=== PATIENT | male | born 1960 | race Caucasian/White ===

== ENCOUNTER 2017-09-14 13:42 | Emergency (ER) | payer OTHER ==
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
[2017-09-14 14:09] VITALS: RESP 18; TEMP 97.9
--- NOTE | 2017-09-14 14:10 | CPEKG ---
Heart Rate: 87 RR Interval: 690 P-R Interval: 132 QRSD Interval: 88 QT Interval: 380 QTC Interval: 457 P [place]: 40 QRS [place]: 56 T Wave [place]: 19 EKG Severity - NORMAL ECG - EKG Impression: SINUS RHYTHM Electronically Signed By: Jeremiah Cat 17-Sep-2017 09:38:38
[2017-09-14 14:33] LABS: PLATELET COUNT 249 10^3/uL (150-400)
[2017-09-14 15:22] VITALS: BP 132/73; PULSE 84; O2SAT 95
== END 2017-09-14 15:20 | disposition home or self-care (01) ==
LOC: CED 13:42
DX: R07.9 Chest pain, unspecified (principal); F17.210 Nicotine dependence, cigarettes, uncomplicated
CPT/HCPCS: 80048-PO; 84484-PO; 85025-PO

== ENCOUNTER → 2018-05-15 | Outpatient (CLI) | payer OTHER | LOC: BHFA 09:30 | PROVIDERS: ATTEND Internal Medicine Interventional Cardiology | DX: I25.10 Atherosclerotic heart disease of native coronary artery without angina pectoris (principal) | CPT/HCPCS: 78452; 93017; A9500; J2785 ==

== ENCOUNTER 2018-05-24 12:40 | Day surgery (SDC) | payer OTHER ==
[2018-05-24] MEDS ORDERED: DIAZEPAM 5 MG TAB PO ONE (12:43)
[2018-05-24] MEDS ORDERED: diphenhydrAMINE 25 MG CAP PO ONE (12:43)
[2018-05-24] MEDS ORDERED: FAMOTIDINE 20 MG TAB PO ONE (12:43)
[2018-05-24] MEDS ORDERED: NS 1,000 ML IV ONE (12:43)
[2018-05-24] MEDS ORDERED: ASPIRIN EC 325 MG TAB PO ONE (12:43)
[2018-05-24 13:33] LABS: PLATELET COUNT 237 10^3/uL (150-400)
[2018-05-24 13:45] LABS: INR 0.9 (0.83-1.16); PROTIME(PATIENT) 12.4 SEC (12.0-15.0)
[2018-05-24] MEDS ORDERED: LIDOCAINE 1% 300 MG/30 ML SDV ONE (13:55)
[2018-05-24] MEDS ORDERED: HEPARIN 10,000 UNIT/10 ML MDV (1,000 UNIT/ML) ONE (13:56)
[2018-05-24] MEDS ORDERED: fentaNYL 100 MCG/2 ML INJ ONE (13:56)
[2018-05-24] MEDS ORDERED: MIDAZOLAM 2 MG/2 ML VIAL ONE (13:56)
[2018-05-24] MEDS ORDERED: VERAPAMIL 5 MG/2 ML VIAL ONE (13:56)
[2018-05-24] MEDS ORDERED: IOPAMIDOL (ISOVUE-370) 150 ML BTL IV ONE (13:56)
[2018-05-24] MEDS ORDERED: NITROGLYCERIN 0.4 MG BTL SL PRN (15:19)
[2018-05-24] MEDS ORDERED: ONDANSETRON 4 MG/2 ML VIAL IVP PRN (15:19)
[2018-05-24] MEDS ORDERED: OXYCODONE/APAP 5/325 TAB PO PRN (15:19)
[2018-05-24] MEDS ORDERED: HYDROCODONE/APAP 5/325 TAB PO PRN (15:19)
[2018-05-24] MEDS ORDERED: ATROPINE SULFATE 1 MG/10 ML SYR IVP PRN (15:19)
--- NOTE | 2018-05-24 16:09 | CPEKG ---
Test Reason : OPEN Blood Pressure : / mmHG Vent. Rate : 097 BPM Atrial Rate : 097 BPM P-R Int : 133 ms QRS Dur : 083 ms QT Int : 345 ms P-R-T Axes : 047 070 047 degrees QTc Int : 439 ms Sinus rhythm Confirmed by Rosalina Harman ([id number]) on 05/24/2018 4:08:52 PM Referred By: Confirmed By:Rosalina Harman
--- NOTE | 2018-05-24 17:44 | CPIP ---
DATE OF PROCEDURE: 05/24/2018 PROCEDURE PERFORMED: 1. Selective coronary angiography. 2. Left heart catheterization. 3. Left ventriculogram. 4. Angio-Seal arteriotomy repair, right femoral artery approach. COMPLICATIONS: None. INDICATION FOR THE PROCEDURE: CCS class 4 symptoms of angina occurring at rest, with an intermediate risk stress test, nuclear stress test suggestive of possible prior inferior infarction in a patient who needs to have not only a toe operation but an extensive back operation in the near future. The p atient is unable to exercise routinely because of toe and back issues and chronic back pain. PROCEDURE IN DETAIL: After informed consent was obtained and n.p.o. status was confirmed, the region of the right groin was cleaned, prepped, and draped in sterile fashion. Approximately 10 mL of 1% l idocaine was utilized for local anesthesia. A 6-Sami sheath was placed using a modified Seldinger technique and a micropuncture set. The patient then underwent the originally described procedure wit h the use of JL4 and JR4 coronary catheters as well as a 6-Sami pigtail catheter. Standard over-th e-wire exchange technique was utilized for all catheter exchanges. The left main coronary lumen was approximately 4 mm in size. The left main trifurcated into an LAD, small ramus and circumflex system. The ramus vessel was tiny and approximately 0.5 mm in size and di d not have obvious flow-limiting obstruction, but was not a target for intervention. The circumflex vessel was approximately 2.75 mm in size, giving rise to 2 important obtuse marginal branches and had evidence of AIDA-3 flow. The LAD was 2.75 in size proximally, giving rise to an early diagonal bran ch, which was approximately 2 mm in size. The LAD after the diagonal takeoff coursed the anterior ap ex without flow-limiting obstruction, was a relatively small vessel and less than 2 mm in size throug hout its course. The right coronary artery was dominant, giving rise to the posterior descending as well as 2 small po sterolateral ventricular branches. No flow-limiting obstruction was identified. There was AIDA-3 fl ow to the distal vessel. The patient underwent left heart catheterization, demonstrating normal left ventricular end-diastolic pressure measured at 10 mmHg. The patient underwent left ventriculogram in the BUENROSTRO projection, demo nstrating preserved left ventricular systolic function. Ejection fraction was measured at 55% with n o resting segmental wall motion abnormalities and specifically normal contractility of the inferior w all without evidence of mitral regurgitation. There was also no evidence of aortic stenosis upon pul lback across the aortic valve. The visualized portion of the thoracic aorta was normal caliber and h ad 3 sinuses of Valsalva most consistent with a trileaflet aortic valve. SUMMARY OF FINDINGS: 1. Normal left ventricular chamber size with preserved left ventricular systolic function. Ejection fraction 55%. 2. No resting segmental wall motion abnormalities are identified. 3. Calcification of the coronaries consistent with atherosclerosis on cinefluoroscopy, but no eviden ce of flow-limiting obstruction, dissection, or thrombus is identified. 4. The patient appears to be a good candidate for medical therapy per reduce the risk of plaque prog ression or inflammation with the use of a statin-based regimen to achieve a non-HDL cholesterol, that is the total cholesterol minus the HDL to be less than 100 mg/dL. Patient tolerated the procedure without immediate complication and would return to post cath recovery unit in good and stable condition and should be able to be discharged later today as long as no thong y complications occur. The patient will not need further cardiac testing prior to proceeding with planned orthopedic operati ons. It appears that his risk of sudden incapacitation from cardiovascular illness is quite low. It does appear that the nuclear stress test result was a spurious value and was a false-positive nuclea r stress test on the basis of this study. Copy requested to: [facility] /[id number]/MODL
== END 2018-05-24 18:49 | disposition home or self-care (01) ==
LOC: FCATH 12:40
PROVIDERS: ATTEND Internal Medicine Cardiovascular Disease
PROC: B2111ZZ Fluoroscopy of Multiple Coronary Arteries using Low Osmolar Contrast (ICD-10-PCS; principal; 2018-05-24)
PROC: B2151ZZ Fluoroscopy of Left Heart using Low Osmolar Contrast (ICD-10-PCS; principal; 2018-05-24)
PROC: 4A023N7 Measurement of Cardiac Sampling and Pressure, Left Heart, Percutaneous Approach (ICD-10-PCS; principal; 2018-05-24)
DX: I25.119 Atherosclerotic heart disease of native coronary artery with unspecified angina pectoris (principal); G89.29 Other chronic pain; Z98.1 Arthrodesis status
CPT/HCPCS: C1760; J1200; J1644; J2250; J3010; Q9967

== ENCOUNTER 2018-05-25 16:23 | Inpatient (IN) | payer OTHER ==
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
[2018-05-25] MEDS ORDERED: HYDROmorphONE/DILAUDID 2 MG/ML INJ IVP ONE (18:00)
[2018-05-25 19:19] LABS: INR 0.91 (0.83-1.16); PROTIME(PATIENT) 12.5 SEC (12.0-15.0)
--- NOTE | 2018-05-25 21:19 | SOAPPROG ---
[facility] Progress Note Assessment/Plan: 1. Pseudo aneurysm R NURSE PRACTITIONER PHYSICIAN ASSISTANT - Pt is s/p angiogram on 05/24/18. Did well following the procedure until this pm when he noted sharp inguinal pain followed by swelling. He presented to the ER and was diagnosed with a pseudo aneurysm (.3 x .3 x .5 cm). He was not felt to be a thrombin injection candidate given size and was managed with compression. Pt also noted to have a DVT of the R CFV. On exam Pt has a 2 x 4 cm hematoma with mild echymosis, 2+ DP, 1+ PT, normal color, and now edema. Suspect re-bleed and failure of pseudoaneurysm to heal is biggest threat at this time. Plan is to re-image in am. If pseudoaneurysm has healed and DVT remain would start anticoagulation. Subjective: + chronic back pain (not different) + pain to palpation in R inguinal access site Objective: Vital Signs Temp Pulse Resp BP Pulse Ox 36.6 C 89 18 142/93 H 93 05/25/18 20:20 05/25/18 20:20 05/25/18 20:20 05/25/18 20:20 05/25/18 20:20 PT 12.5 SEC (12.0-15.0) 05/25/18 16:40 INR 0.91 (0.83-1.16) 05/25/18 16:40 Physical Exam - Physical Exam General Appearance: alert, mild distress Skin: normal color Extremities: other (+ hematoma, + echymosis, 2+ DP, 1+ PT.), No pedal edema Neuro/Psych: alert, oriented x 3 ICD10 Worksheet Patient Problems: Problems Problem Status Onset CAD (coronary artery disease) Acute CAD (coronary artery disease) Acute
[2018-05-25] MEDS ORDERED: ONDANSETRON DISINTEGRATING 4 MG TAB PO PRN (22:23)
[2018-05-25] MEDS ORDERED: ONDANSETRON 4 MG/2 ML VIAL IVP PRN (22:23)
[2018-05-25] MEDS ORDERED: LORazepam 0.5 MG TAB PO PRN (22:23)
[2018-05-25] MEDS ORDERED: ACETAMINOPHEN 325 MG TAB PO PRN (22:23)
[2018-05-25] MEDS ORDERED: NS 1,000 ML IV SCH (22:30)
[2018-05-25] MEDS: OXYCODONE/APAP 5/325 TAB PO PRN (22:57)
--- NOTE | 2018-05-25 23:09 | PDGENHP ---
History and Physical - Chief Complaint right groing pain and swelling s/p cath - History of Present Illness Source - Patient provides history and appears reliable. EMR was reviewed and case discussed with accepting hospitalist. HPI - Pleasant 57 yo M with pmx significant for HLD, nonocclusive CAD, chronic back pain related to degenerative disc disease who initially presented to the cardiology office for preoperative evaluation on 05/22/2018. Given patient's abnormal echo findings it was recommended that he undergo cardiac catheterization preoperatively for his back surgery. On 05/24/2018 patient underwent an elective catheterization in the right groin that was non revealing for any occlusive disease. Patient appeared to be doing well postoperatively in recovery. 24 hr after did discharge in his cath at home patient reports he was still doing well and was taking it easy as per his discharge instructions. He subsequently went into the shower and remove his bandage. He had an immediate sharp stabbing pain that lasted home for approximately 20 min without improvement. He also noticed when he looked down that he had developed a large swelling area. [facility] where patient had compression applied with the weight bag. Pain has persisted without significant change or improvement. The swelling area has gone down. Patient did undergo a an ultrasound which was concerning for a thrombus and pseudoaneurysm. Patient transferred to [facility] for further evaluation by Cardiology. Dr. Palmer saw the patient on arrival. Plans to monitor overnight while patient is on bed rest and repeat imaging studies in the morning. At this time patient not and anticoagulate hsu candidate. Pseudoaneurysm was noted to be of insufficient size for IR intervention. History Information - Allergies/Home Medication List Allergies/Adverse Reactions: No Known Allergies Allergy (Verified 11/06/13 18:04) Home Medications: Cyclobenzaprine [Flexeril 10 MG (*)] 10 mg PO TID 05/23/18 [Last Taken 05/25/18 08:30] Diclofenac Sodium [Voltaren 75 MG (*)] 75 mg PO BID 05/23/18 [Last Taken 2 Days Ago ~05/23/18] Finasteride [Proscar 5 MG (*)] 2.5 mg PO DAILY 05/23/18 [Last Taken 05/23/18] Herbals/Supplements -Info Only 1 ea PO DAILY 05/23/18 [Last Taken 2 Days Ago ~] Multivitamins [Multivitamin (*)] 1 each PO DAILY 05/23/18 [Last Taken 05/23/18] Pravastatin Sodium 40 mg PO HS 05/23/18 [Last Taken 05/23/18] morphINE SR [Ms Contin/Oramorph 15 mg (*)] 15 mg PO TID 05/23/18 [Last Taken 01/05 08:30] oxyCODONE IR [Oxycodone Ir (*)] 10 mg PO TID 05/23/18 [Last Taken 05/25/18 08:30 ] Aspirin EC [Aspirin EC 325 mg (*)] 325 mg PO DAILY 05/24/18 [Last Taken 08:30] I have personally reviewed and updated: family history, medical history, social history, surgical history - Past Medical History Additional medical history: Previous listed history of CAD, chronic back pain related to osteoarthritis and degenerative disc disease, ED, anxiety, history of tremor - Surgical History Additional surgical history: Arthroscopic surgery left shoulder, cervical spine fusion, lumbar spine fusion - Family History Additional family history: CAD, HTN - Social History Smoking Status: Current every day smoker Tobacco Use: Cigar Alcohol Use: Other (Patient drinks 1-2 beers per day.) Drug Use: None Additional social history: Patient lives with his partner Karly. Cor status- full. Review of Systems Review of Systems: ROS: 10pt was reviewed & negative except for what was stated in HPI & below Constitutional: Reports: no symptoms Cardiac: Reports: no symptoms. Denies: chest pain, edema, lightheadedness, palpitations, syncope Respiratory: Reports: no symptoms. Denies: cough, shortness of breath Gastrointestinal: Reports: no symptoms Genitourinary: Reports: no symptoms Physical Exam Physical Exam: Selected Entries 05/25/18 16:25 Blood Pressure Automatic Method Heart Rate 112 H Respiratory 16 Rate O2 Sat (%) 93 Blood Pressure 149/106 H Mean Arterial 120 H Pressure (MAP) O2 Delivery Room Air Mode Temperature Oral Source Temp Pulse Resp BP Pulse Ox 36.6 C 88 18 125/74 H 93 05/25/18 21:57 05/25/18 21:57 05/25/18 21:57 05/25/18 21:57 05/25/18 21:57 Constitutional: appears nourished, uncomfortable, other (Patient mild distress complaining of right groin pain.) Eyes: PERRL (Slightly decreased reactivity light bilaterally but symmetric.), anicteric sclera, EOMI, No scleral injection Ears, Nose, Mouth, Throat: moist mucous membranes, other (No nasal discharge), No poor dentition Cardiovascular: regular rate and rhythym, no murmur, rub, or gallop, pulses symmetric bilaterally, No systolic murmur, No edema Peripheral Pulses: 2+: dorsalis-pedis (R), dorsalis-pedis (L) Respiratory: no respiratory distress, no rales or rhonchi, clear to auscultation , No reduced air movement, No expiratory wheeze, No inspiratory crackles, No respiratory distress Gastrointestinal: normoactive bowel sounds, soft, non-tender abdomen, no palpable masses, No distension Genitourinary: no bladder tenderness, other (Right groin cath site in with underlying hematoma bruising. Some mild tenderness to palpation. Patient is keeping ice on that area. He does lay very still. There is no evidence of active bleeding on the surface.) Skin: warm, normal color, no fluctuance, other (Right groin swelling as noted above.), No abrasion, No rash Musculoskeletal: full muscle strength (Overall strength intact but limited secondary to patient lying quietly in bed.), No generalized weakness Neurologic: AAOx3, sensation intact bilaterally, other (Grossly nonfocal exam.) , No facial droop Psychiatric: interacting appropriately, not encephalopathic, thought process linear, anxious, No flat affect, No poor insight, No poor judgement, No poor memory Lab Data & Imaging Review PT 12.5 SEC (12.0-15.0) 05/25/18 16:40 INR 0.91 (0.83-1.16) 05/25/18 16:40 APTT 26.2 SEC (23.0-38.0) 05/25/18 16:40 POC Sodium 142 mEq/L (135-145) 05/25/18 17:19 POC Potassium 3.6 mEq/L (3.3-5.0) 05/25/18 17:19 POC Chloride 101.0 mEq/L (97-110) 05/25/18 17:19 POC Total CO2 23 mEq/L (22-31) 05/25/18 17:19 POC BUN 9 mg/dL (7-23) 05/25/18 17:19 POC Creatinine 1.0 mg/dL (0.7-1.3) 05/25/18 17:19 POC Glucose 82 mg/dL (70-100) 05/25/18 17:19 POC Calcium 9.5 mg/dL (8.5-10.4) 05/25/18 17:19 Imaging Review: Ultrasound Doppler For Pseudoaneurysm, Right Groin Indication: Recent catheterization. Groin pain and bruising. Technique: Ultrasound venous Doppler imaging of the groin was performed with attention to the common femoral artery and vein. Findings: A short segment of the right common femoral vein in the groin is completely thrombosed ( no internal blood flow and noncompressible). The right external and common iliac veins have normal flow and phasicity. A small flash filling pseudoaneurysm, measuring 0.3 x 0.3 x 0.5 cm has an imperceptible neck on grayscale imaging. The common femoral arteries are patent with normal arterial flow. Impression: 1. Acute short segment deep venous thrombosis involving the right common femoral vein. 2. 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 Findings discussed with Emergency Department physician, Marie Hayes MD, on 05/25/2018, 17:47. Dictated By: Nicholas Neri MD Right Lower Extremity Deep Venous Duplex Ultrasound Indication: Leg pain, possible deep venous thrombosis. Technique: The lower extremity deep venous system and veins of the proximal calf were interrogated with mckeon-scale, color, and spectral Doppler imaging. Comparison: None Findings: A short segment of the common femoral vein in the groin is completely occluded. The segment is not compressible and has no internal blood flow on color Doppler imaging. The right external and common iliac veins have appropriate blood flow and waveforms on color Doppler and spectral Doppler imaging. The femoral, popliteal, greater saphenous and posterior tibial and peroneal veins of the calf normally compress on grayscale imaging. The deep venous system and superficial veins of the proximal calf have normal flow and expected variability. Impression: Short segment of acute deep venous thrombosis involving the right common femoral vein. No extension into the external iliac vein or peripherally into the femoral vein. Findings discussed with Emergency Department physician, Dr. Marie Hayes on May 25, 2018 at 1747 hours. Dictated By: Nicholas Neri MD Assessment & Plan Assessment: Pleasant 57-year-old gentleman status post cardiac catheterization yesterday on via right inguinal approach who complaints sudden onset right inguinal pain and swelling. # pseudoaneurysm - status post compression. Repeat ultrasound in the morning. Cardiology evaluated the patient upon arrival to the floor. They recommend repeating imaging studies in the morning and will reassess plan at that time. # thrombus right common femoral - repeat imaging study as noted above will determine if patient will require initiation of and anticoagulant. # acute pain - addition of morphine and p.r.n. Lorazepam in addition to patient' s chronic home medications narcotics. Chronic medical issues #Chronic back pain - resume patient's home pain management. #Chronic narcotic use - continue patient's home medication reviewed here with a have some acute on chronic pain and so IV morphine and p.r.n. Lorazepam are available. #Hyperlipidemia - resume patient's statin. #Nonocclusive CAD #Tobacco dependence cessation will be encouraged. Patient reports he smokes intermittently and cigars. #Anxiety - Ativan available p.r.n.. FEN - IV fluids for some gentle IV fluid hydration patient will be made NPO after midnight. Diet as tolerated currently. PPX - SCDs. Anticoagulation tomorrow pending repeat imaging. COR - FULL Dispo - patient admitted observation status on PCU floor for close cardiac monitoring as well as wound monitoring from his cath site. Pending repeat imaging study anticipate less than 2 midnight stay if within normal limits.
[2018-05-25] MEDS: PRAVASTATIN SODIUM 40 MG TAB PO SCH (23:17)
[2018-05-25] MEDS: morphINE SR 15 MG TAB PO SCH (23:17)
[2018-05-26 04:20] LABS: PLATELET COUNT 194 10^3/uL (150-400)
[2018-05-26] MEDS: CYCLOBENZAPRINE 10 MG TAB PO SCH ×3 (08:49→21:09)
[2018-05-26] MEDS: morphINE SR 15 MG TAB PO SCH ×3 (08:49→21:09)
[2018-05-26] MEDS: FINASTERIDE 5 MG TAB PO SCH (08:49)
[2018-05-26] MEDS: OXYCODONE/APAP 5/325 TAB PO PRN ×3 (08:50→23:38)
--- NOTE | 2018-05-26 13:12 | HOSPPROG ---
Hospitalist Progress Note Assessment/Plan: Assessment: 57-year-old male presents with acute right groin pseudoaneurysm following cardiac catheterization complicated by acute deep venous thrombosis Plan: 1. Pseudoaneurysm. Acute, right groin, present on admission, resulting in significant pain and responding to localized pressure -discussed with Dr. Miguel Angel Alonzo, he reports that follow-up ultrasound investigation demonstrating no ongoing pseudoaneurysm -continue to encourage patient to follow post catheter activity recommendations 2. Deep venous thrombosis. Acute, present on admission, right common femoral vein, remains present per Dr. Alonzo -reviewed with Cardiology, they are amenable to initiating therapeutic strength Eliquis -discussed with patient and , we agreed to initiate 10 mg of Eliquis twice daily now with ongoing monitoring for 24 hr to ensure no increase in the bleeding into the adjacent hematoma -recommend 3 months of anticoagulation for provoked DVT, most likely secondary to localized pressure as well as overlying hematoma 3. Hematoma. Acute, present on admission, right groin, secondary to bleeding following cardiac catheterization, further workup indicated -hemoglobin 13.1, will repeat hemoglobin level in a.m. -will monitor area for worsening ecchymoses, swelling or pain, and will get ultrasound if any of these are occurring -patient is high risk for rebleed into this area, and he will require inpatient monitoring for additional 24 hr for groin checks now that his anticoagulation has been initiated 4. Coronary artery disease. Chronic, no flow-limiting stenosis on cardiac catheterization -reviewed outside records including 05/24/[address] Magdy Carson, he reports minimal irregularities but no focal stenosis and recommends optimizing secondary prevention -normal sinus rhythm on telemetry, personally interpreted, DC tele, adjust to med surge status -LDL less than 70, no indication for statin -will hold on anti-platelet medication since he is being started on systemic anticoagulation 5. Chronic pain with continuous opiate dependency. Continue home morphine, p.r.n. Oxycodone Diet. Regular Prophylaxis. High risk patient, currently on systemic anticoagulation Code. Full Disposition. Upgraded to inpatient admission status reasonable medical necessity including acute deep venous thrombosis requiring systemic anticoagulation complicated by acute hematoma and pseudoaneurysm resulting in high risk of bleeding, requiring groin checks and monitoring to ensure patient does not experience worsening of his hematoma. Subjective: ongoing discomfort R groin, hungry Objective: Vital Signs Temp Pulse Resp BP Pulse Ox 36.8 C 77 15 123/76 H 90 L 05/26/18 07:40 05/26/18 07:40 05/26/18 07:40 05/26/18 07:40 05/26/18 07:40 Laboratory Results 05/26/18 04:01 05/26/18 04:01 05/25/18 05/26/18 05/27/18 05:59 05:59 05:59 Intake Total 780 Output Total 900 Balance -120 PT 12.5 SEC (12.0-15.0) 05/25/18 16:40 INR 0.91 (0.83-1.16) 05/25/18 16:40 - Physical Exam Constitutional: no apparent distress, appears nourished, not in pain, uncomfortable Cardiovascular: regular rate and rhythym, no murmur, rub, or gallop, No edema Respiratory: no respiratory distress, no rales or rhonchi, clear to auscultation Gastrointestinal: normoactive bowel sounds, soft, non-tender abdomen, No hepatosplenomegally, No guarding, No distension Skin: other (ecchymoses R groin, fluctuance, swelling, mild tenderness, no erythema) Neurologic: AAOx3 Psychiatric: interacting appropriately, not anxious, not encephalopathic, thought process linear ICD10 Worksheet Patient Problems: Problems Problem Status Onset CAD (coronary artery disease) Acute CAD (coronary artery disease) Acute
--- NOTE | 2018-05-26 14:33 | PDMN ---
Medical Necessity Medical necessity: [facility] [place] M350 DVT of LE: 57 yo w/ acute right groin pseudoaneurysm following cardiac cath complicated by acute DVT. Cardiology consult, initiate therapeutic strength eliquis. Hematoma at cath site requiring ongoing H/H monitoring, pt high risk for rebleed into this area and he will require inpatient monitoring for additional 24hr for groin checks now that anticoagulation has been initiated. Hx CAD. "Disposition. Upgraded to inpatient admission status reasonable medical necessity including acute deep venous thrombosis requiring systemic anticoagulation complicated by acute hematoma and pseudoaneurysm resulting in high risk of bleeding, requiring groin checks and monitoring to ensure patient does not experience worsening of his hematoma.". Change to IP status 05/26/18 @1307 per MD order.
[2018-05-26] MEDS: APIXABAN 5 MG TAB PO SCH ×2 (15:04→21:09)
--- NOTE | 2018-05-26 15:59 | ASMTCMCOM ---
CM Note CM Note Notes: CM reviewed pt's chart and met with pt on rounds for d/c planning. Pt is a 57 y/o male presenting on admission with an acute right groin; this appears to have resolved. Pt also presenting with deep venous thrombosis psudoaneurysm, an acute hematoma secondary to bleeding following cardiac cartherization and CAD chronic, with no flow-limiting stenosis. pt lives independently with his Yael mobley, #[phone]. No CM needs have been identified. CM will follow for changes. D/C Plan: Anticipate independent. Date Signed: 05/26/2018 03:58 PM Electronically Signed By:Elham Cesar
[2018-05-26] MEDS: PRAVASTATIN SODIUM 40 MG TAB PO SCH (21:09)
[2018-05-27 07:18] VITALS: BP 127/78
[2018-05-27] MEDS: APIXABAN 5 MG TAB PO SCH (08:48)
[2018-05-27] MEDS: FINASTERIDE 5 MG TAB PO SCH (08:48)
[2018-05-27] MEDS: morphINE SR 15 MG TAB PO SCH (08:49)
[2018-05-27] MEDS: CYCLOBENZAPRINE 10 MG TAB PO SCH (08:49)
[2018-05-27] MEDS: OXYCODONE/APAP 5/325 TAB PO PRN ×2 (10:15→12:45)
--- NOTE | 2018-05-27 14:52 | ASMTLACE ---
SOURAV Length of stay for Answers: 1 day current admission Acuity / Level of Answers: Yes Care: Did the patient have an inpatient admission? Comorbidities - select Answers: Coronary Artery Disease all that apply Opioid dependence / Chronic pain # of Emergency department Answers: 0 visits in the last 6 months Score: 10 Date Signed: 05/27/2018 02:51 PM Electronically Signed By:Dawn Saul RN
--- NOTE | 2018-05-27 19:11 | PDDCSUM ---
Discharge Summary Discharge Summary: DISCHARGE SUMMARY FOLLOW-UP ITEMS: Groin check this week at [facility] DATE OF ADMISSION: 05/25/2018 DATE OF DISCHARGE: 05/27/2018 DISCHARGE DIAGNOSES: 1. Acute right groin pseudoaneurysm 2. Acute right groin hematoma 3. Acute common femoral vein deep venous thrombosis present on admission 4. Chronic pain with continuous opiate dependency 5. Suspected clavicular synovial cyst CONSULTATIONS: None PROCEDURES / IMAGING: Pseudoaneurysm ultrasound demonstrating resolution of pseudoaneurysm on 05/26, ongoing right common femoral vein DVT, right groin ultrasound demonstrating resolution of right groin hematoma CHIEF COMPLAINT: Right groin pain SUBJECTIVE: Right groin pain is stabilized, has some right clavicular pain PHYSICAL EXAM ON DISCHARGE: Systolic blood pressure 120-130, heart rate 70, afebrile, satting well on room air, alert awake oriented x3, diffuse body pain, right clavicle head demonstrates a fluctuant, nodular, tender area which does not have any surrounding erythema, right groin has diffuse ecchymosis which is mildly firm and mildly tender at the surgical site without any surrounding erythema, no significant fluctuance LABS ON DISCHARGE: Hemoglobin 13.2 HOSPITAL COURSE BY PROBLEM: The patient presented with right groin pain secondary to a combination of a small right groin pseudoaneurysm, right groin hematoma, completely occluded common femoral vein, all following a cardiac catheterization. He had applied pressure to the affected area prior to arrival, and the combination of compression and small hematoma may have contributed to his clot, characterizing it most likely as a provoked DVT. Consideration was given to intervention on the pseudoaneurysm, but because of size, noninvasive monitoring was pursued, and it was completely resolved on follow-up pseudoaneurysm ultrasound on 05/26. At that time, I curb sided Cardiology and we decided to systemically anticoagulated him for his common femoral vein DVT, given that it was completely occluded. We started him on therapeutic Eliquis, and monitor him closely over the subsequent 24 hr to ensure no evidence of bleeding in the affected area. On 05/27, the patient had increased ecchymosis in the right groin, so an ultrasound was performed which demonstrated no significant hematoma and no recurrence of the pseudoaneurysm. Consequently, he was discharged safely on Eliquis, with anticipated duration 3 months for a provoked DVT. That being said, the repeat ultrasound did not demonstrate ongoing evidence of the common femoral vein clot, and although this was not a optimal comma vascular study, if the patient experiences any bleeding complications, would have a repeat ultrasound performed specifically to evaluate for ongoing clot. Additionally, the patient reported some right proximal clavicular pain, and I believe this is most likely from a synovial cyst. He had had an outpatient x-ray which demonstrated no bony abnormality in the affected area. I recommended that he discuss this issue with Dr. Pimentel, who is currently evaluating him for surgical interventions elsewhere, and he may drain the cyst perioperatively. DISCHARGE MEDICATIONS: Please see official discharge medication reconciliation sheet in chart , Eliquis starter pack, continue all other home medications with the discontinuation of diclofenac while on anticoagulation. DISCHARGE INSTRUCTIONS: Please follow up with [facility] this week, they will contact you for an earlier appointment. TIME SPENT: Greater than 30 minutes were spent on direct patient care, as well as discharge planning and preparation.
== END 2018-05-27 13:28 | disposition home or self-care (01) | DRG 300 ==
LOC: CED 16:23 → CEDHOLD 17:57 → F3E 20:11 → F2W 21:55 → OBSVTOIN 05-26 13:07
PROVIDERS: ADMIT Internal Medicine; ATTEND Internal Medicine
DX: I72.4 Aneurysm of artery of lower extremity (principal); I82.411 Acute embolism and thrombosis of right femoral vein; F11.20 Opioid dependence, uncomplicated; L76.32 Postprocedural hematoma of skin and subcutaneous tissue following other procedure; G89.29 Other chronic pain; M71.38 Other bursal cyst, other site; E78.5 Hyperlipidemia, unspecified; I25.10 Atherosclerotic heart disease of native coronary artery without angina pectoris; I10 Essential (primary) hypertension; F17.200 Nicotine dependence, unspecified, uncomplicated; F41.8 Other specified anxiety disorders
CPT/HCPCS: 80048-PO; 93971-PO; 96374; C1760; G0378; J1170; J1200; J1644; J2250; J3010; Q9967